=== PATIENT | male | born 1950 | race Caucasian/White ===

== ENCOUNTER 2019-01-10 23:10 | Inpatient (IN) | payer OTHER ==
[~2019-01-10] VITALS: Ht 170.2 cm; Wt 65.0 kg
[2019-01-10 23:13] VITALS: BP 127/72
[2019-01-10] MEDS ORDERED: COUMADIN 5 MG TA5 M1 PO (23:25)
[2019-01-10 23:26] LABS: ABSOLUTE BASOPHILS 0.1 thou/uL (0.0-0.2); ABSOLUTE EOSINOPHILS 0.2 thou/uL (0.0-0.7); ABSOLUTE LYMPHOCYTES 1.5 thou/uL (0.8-5.3); BASOPHILS 0.7 %; HEMOGLOBIN 15.7 gm/dL (14.0-18.0); LYMPHOCYTES 19.8 %; MCH 31.4 pg (26.0-34.0); MCHC 34.1 g/dL (28.0-37.0); MCV 91.9 fL (80.0-100.0); MONOCYTES 12.3 %; MPV 7.8 fl. (7.2-11.1); NUCLEATED RBCS 0 /100WBC; PLATELET COUNT* 319 thou/uL (150-400); POLYS 64.2 %; RBC 5.01 mil/uL (4.50-6.00); RDW-CV 14.8 % (10.5-14.5); WBC 7.8 thou/uL (4.0-11.0)
[2019-01-10] MEDS ORDERED: LOPRESSOR25 PO (23:27)
[2019-01-10] MEDS ORDERED: LISINOPRIL2.5 MG PO (23:28)
[2019-01-10] MEDS ORDERED: NORCO 5-325 TA1 EAC1 PO (23:28)
[2019-01-10] MEDS ORDERED: PLAVIX 75 MG TA75 M1 PO (23:29)
[2019-01-10] MEDS ORDERED: TOPAMAX 25 MG T25 M1 PO (23:29)
[2019-01-10] MEDS ORDERED: LIPITOR40 MG PO (23:30)
[2019-01-10] MEDS ORDERED: SPIRONOLACTONE25 M1 PO (23:31)
[2019-01-10 23:35] LABS: ANION GAP 11 mmol/L (7-16); BUN 8 mg/dL (7-18); CHLORIDE 103 mmol/L (98-107); CO2 27 mmol/L (21-32); CREATININE 0.9 mg/dL (0.6-1.3); GLUCOSE 80 mg/dL (70-99); POTASSIUM 3.6 mmol/L (3.5-5.1); SODIUM 141 mmol/L (136-145)
[2019-01-10 23:37] LABS: INR 2.6; PROTIME 26.1 Seconds (9.20-11.50)
[2019-01-10 23:52] LABS: ALBUMIN 3.6 g/dL (3.4-5.0); ALKALINE PHOSPHATASE 98 U/L (46-116); SGOT 17 U/L (15-37); SGPT 23 U/L (30-65); TOTAL BILIRUBIN 0.2 mg/dL (<0.1-1.0); TOTAL PROTEIN 8.2 g/dL (6.4-8.2); TROPONIN-I LEVEL <0.06 ng/mL (<0.06)
[2019-01-11 01:30] VITALS: BP 101/49
[2019-01-11 07:00] VITALS: BP 103/40
[2019-01-11 11:00] VITALS: BP 106/60
[2019-01-11 15:00] VITALS: BP 100/59
[2019-01-11 18:08] VITALS: BP 92/54
[2019-01-11 21:30] VITALS: BP 89/52; BP 90/42
[2019-01-12 00:05] VITALS: BP 91/51
[2019-01-12] MEDS ORDERED: TOPAMAX25 M1 PO (03:53)
[2019-01-12] MEDS ORDERED: TOPAMAX 25 MG T25 M1 PO (03:54)
[2019-01-12 04:00] VITALS: BP 89/50
--- NOTE | 2019-01-12 05:25 | NUR ---
RECEIVED PT FROM ED PER CART ACCOMPANIED BY BÁRBARA DUTTON AT APPROX 2125. PT IS AWAKE AND ORIENTED X4. VSS ON 2L OF O2/NC. ADMISSION ASSESSMENTS DONE AND CHARTED. 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 PT IS ADVISED TO HAVE NOTHING BY MOUTH POST MIDNIGHT, FOR CARDIAC STRESS TEST IN AM. PT VERBALISED UNDERSTANDING. PT IS ORIENTED ON THE USE OF CALL LIGHT AND ON ROOM SET UP. PT IS ABLE TO SLEEP MOST OF THE NIGHT. CALL LIGHT WITHIN REACH, HOURLY ROUNDING DONE FOR PT SAFETY.
[2019-01-12 08:00] VITALS: BP 108/62
--- NOTE | 2019-01-12 08:00 | NUR ---
ASSUMED PT CARE AROUND 0700, PT NOTED TO BE A/OX4 NPO ET WAITING FOR STRESS TEST. PT IN GOOD SPIRITS. VSS, ASSESSMENT COMPLETE ET DOCUMENTED. IR SR ON CARD MONITOR. WILL CONT HOULY ROUNDS THIS SHIFT.
--- NOTE | 2019-01-12 14:05 | NUR ---
Pt is A&O. Resides at home alone. Active and independent. No DME. No hx of HH or SNF. Pt had stress test today, awaiting results, hopeful to dc to home today. No needs anticipated.
--- NOTE | 2019-01-12 14:53 | EKG ---
[place] [address] ELECTROCARDIOGRAM REPORT Name: TOMER CASTANO Room: [address] ADM IN M.R.#: [id number] Admission: 01/11/19 Attend Phys: Dennis Christopher MD Discharge: Date of : 50 Report #: [id number] THIS REPORT FOR: //name// [facility] ED Test Date: 2019-01-10 Test Time: 23:13:07 Pat Name: TOMER CASTANO Department: Room: [facility] Gender: M Neonatal Doctor: : 1950 Requested By: Eliana Thomas Order Number: [id number] MD: Royal Javier Measurements Intervals Glenn Rate: 94 P: 75 [place]: 124 QRS: 139 QRSD: 106 T: 43 QT: 374 QTc: 468 Interpretive Statements Sinus rhythm Probable right ventricular hypertrophy Possible inferior infarct, old No previous ECG available for comparison Electronically Signed On 01-12-2019 14:53:21 CDT by Royal Javier [email or web address] <ELECTRONICALLY SIGNED> By: Royal Javier MD, [facility] 01/12/19 1453 12 12 Royal Javier MD, FACC /EPI
--- NOTE | 2019-01-12 16:22 | CARDNUC ---
[place] [address] CARDIAC NUCLEAR IMAGING REPORT Name: TOMER CASTANO Room: [address]#: [id number] Admission: 01/11/19 Attend Phys: Dennis Christopher, Discharge: Date of : 50 Date of Service: 01/12/19 1622 Report #: [id number] THIS REPORT FOR: //name// APPROVED REPORT Imaging Protocol: Rest Tc-99m/Stress Tc-99m 1 day Study performed: 01/11/2019 12:52:00 Indication: Dyspnea, Jaw pain, Left UE pain. Patient Location: In-Patient Room #: 206 Stress Tech: Darlyn Reeves Stress Nurse: Tesha Son RN NM Tech:WALKER So Ht: 5 ft 7 in Wt: 142 lbs BSA: 1.75 m2 BMI: 22.23 Medical History Medical History: Angina, CAD s/p NV, CAD s/p stent, COPD, Current Smoker, Fatigue, HTN, Hyperlipidemia, Hypotension, RBBB, SOB, Weakness, Abdominal Aneurysm. Medications: Warfarin, Metoprolol, Solu-Medrol, Lipitor, Plavix, Lisinopril, Sprionolactone. Allergies: No known drug allergies Cardiac Risk Factors: Age, Current Smoker, HTN, Hyperlipidemia, Smoking, SOB. Previous Cardiac Procedures: Myocardial infarction, PCI Pretest Chest Pain Characteristics: No chest pain Exercise History: Indeterminate Physical Disabilities: Generalized weakness, 1x assist with transfer, unsteady gait. Meds Held (24 hrs): Metoprolol. Resting Data Rest SPECT myocardial perfusion imaging was performed in supine position 30 minutes following the intravenous injection of 11.0 mCi of Tc-99m Sestamibi. Time of rest injection: 1005 Date: 01/12/2019 The images were gated to evaluate regional wall motion and calculate left ventricular ejection fraction. Administration Route: IV Administration Site: Right [place] [address] CARDIAC NUCLEAR IMAGING REPORT Name: TOMER CASTANO Room: [address]#: [id number] Admission: 01/11/19 Attend Phys: Dennis Christopher, Discharge: Date of : 50 Date of Service: 01/12/19 1622 Report #: [id number] Pharmacologic stress test was performed by injecting Regadenoson 0.4 mg IV push over 10-15 seconds immediately followed by the intravenous injection of 35.0 mCi of Tc-99m Sestamibi. Time of stress injection: 1205 Date: 01/12/2019 Administration Route: IV Administration Site: Right AC Gated Stress SPECT was performed 40 minutes after stress injection. The images were gated to evaluate regional wall motion and calculate left ventricular ejection fraction. Prone imaging was performed. Stress Test Details Stress Test: Pharmacologic stress testing performed using 0.4 mg of regadenoson per 5 mL given IV over 10 seconds. Reason for pharmacologic stress test: Generalized weakness, unsteady gait, 1x assist on transfer.. HR Max Heart Rate (APMHR): 152 bpm Resting HR: 86 bpm Target HR (85% APMHR): 129 bpm Max HR Achieved: 118 bpm % of APMHR: 77 Recovery HR: 111 bpm BP Resting BP: 102/56 mmHg Max BP: 104/53 mmHg Recovery BP: 102/56 mmHg ECG Resting ECG: Sinus Rhythm, RBBB Stress ECG: Sinus Tachycardia, RBBB ST Change: None Arrhythmia: None Recovery ECG: Sinus Rhythm, RBBB Recovery ST Change: None Recovery Arrhythmia: None Clinical Reason for Termination: Completed protocol Stress Symptoms: Dyspnea, Lightheaded, Dizziness, Headache. Exercise duration: 00 min 00 sec Exercise capacity: 1.00 METs The patient tolerated Lexiscan infusion without significant cardiac symptoms. [place] [address] CARDIAC NUCLEAR IMAGING REPORT Name: TOMER CASTANO Room: [address] IN ..#: [id number] Admission: 01/11/19 Attend Phys: Dennis Christopher, Discharge: Date of : 50 Date of Service: 01/12/19 1622 Report #: [id number] A 68 year old male inpatient presented with recent c/o SOA, Jaw pain, Left UE pain. Patient tolerated sitting Lexiscan well. Recovery unremarkable with PO caffeine, effective. Patient was escorted via wheelchair by staff to Nuclear Medicine for images. Patient was stable with no further complaints at that time. Stress ECG Conclusion The baseline 12-lead EKG shows sinus rhythm with right bundle-branch block without significant ST segment abnormality. EKGs obtained during and post Lexiscan infusion show sinus rhythm and sinus tachycardia with no significant ST or T wave changes when compared to baseline. There were no significant stress-induced arrhythmias. Study Quality Study: Good Artifact: No artifact Study Data At rest, the left ventricular ejection fraction was 74%.. Post stress, the left ventricular ejection was 70%.. TID = 1.06. Perfusion Perfusion images show a large in size moderate intensity fixed defect involving the infra wall from base to apex consistent with prior infarct. No other significant fixed or reversible defects were identified. Wall Motion There is hypokinesis of the inferior wall. No other wall motion abnormalities were appreciated. Nuclear Conclusion ECG Findings: negative for ischemia Clinical Findings: negative for ischemia Nuclear Findings: negative for ischemia Exercise Capacity: not assessed Left Ventricular Function: abnormal Risk Study: low Myocardial perfusion images suggest prior infarct of the inferior wall. There was no evidence of inducible ischemia. Global LV systolic function is fairly well-preserved. This is not a high risk study. <Conclusion> The baseline 12-lead EKG shows sinus rhythm with right bundle-branch [facility] [address] [place] [address] CARDIAC NUCLEAR IMAGING REPORT Name: TOMER CASTANO Room: [address] IN [facility]#: [id number] Admission: 01/11/19 Attend Phys: Dennis Christopher, Discharge: Date of : 50 Date of Service: 01/12/191621 Report #: [id number] block without significant ST segment abnormality. EKGs obtained during and post Lexiscan infusion show sinus rhythm and sinus tachycardia with no significant ST or T wave changes when compared to baseline. There were no significant stress-induced arrhythmias. <ELECTRONICALLY SIGNED> By: Jeffy Paul MD, FACC 01/12/191621 21 21 Jeffy Paul MD, FACC /INF
[2019-01-12] MEDS ORDERED: PREDNISONE 10 M10 MG PO (17:00)
[2019-01-12 17:05] VITALS: BP 100/57
[2019-01-12 17:11] VITALS: BP 100/57
--- NOTE | 2019-01-12 18:05 | NUR ---
PT COMPLTED STRESS TEST THIS SHIFT, VSS, IR SR ON THE CARD MONITOR, PT DENIES ANY PAIN OR DISCOMFORT. PT DISCHARGED TO HOME, TELE ET IV REMOVED PRIOR TO DISCHARGE, PT TAKEN TO DAUGHTERS VEHICLE VIA W/PT TECH. DISCHARGE PACKET WAS PRESENTED, REVIEWED ET SIGNED BY PT.
== END 2019-01-12 18:05 | disposition home or self-care (01) | DRG 189 ==
LOC: M.ERS 23:10 → M.TBA-ER 01-11 01:32 → M.2W 01-11 21:46
PROVIDERS: Emergency Medicine; ADMIT Internal Medicine
DX: J96.01 Acute respiratory failure with hypoxia (principal); R68.84 Jaw pain; J44.9 Chronic obstructive pulmonary disease, unspecified; I10 Essential (primary) hypertension; E78.5 Hyperlipidemia, unspecified; G25.0 Essential tremor; F17.210 Nicotine dependence, cigarettes, uncomplicated; I25.2 Old myocardial infarction; Z95.5 Presence of coronary angioplasty implant and graft; Z79.02 Long term (current) use of antithrombotics/antiplatelets; Z79.899 Other long term (current) drug therapy; Z82.5 Family history of asthma and other chronic lower respiratory diseases